=== PATIENT | female | born 1990 | race African-American/Black ===

== ENCOUNTER → 2020-03-23 | Outpatient (CLI) | payer MEDICAID, OTHER ==
[2015-06-06 11:56] VITALS: BP 107/74
[~2020-03-23] MED LIST: ALBU2.5V8 IH; MAGNESIUM OIL TOP; Oxycodone Hcl/Acetaminophen PO
--- NOTE | 2020-03-23 16:10 | RAD ---
Examination: BREAST LEFT History: Bilateral mastectomy. Bilateral reconstruction. Palpable abnormality involving the left chest wall the past one year. The patient is uncertain if there is any significant change. Comparison/Correlation: None Findings: Limited ultrasound imaging of the left chest wall was performed. Just inferior to the level of the scar at the 3:00 region 8 cm from the center of the left reconstruction, there is a 2.2 cm x 2.3 cm x 0.9 cm tall ovoid heterogeneous, intermediate echogenicity structure. Numerous punctate foci of echogenicity which may represent calcifications are seen noted throughout this structure. No definite flow within the structure. Left axillary lymph nodes are present but benign in appearance. Impression: BI-RADS Category 0-incomplete. There is a mass lesion corresponding to the palpable abnormality within the left reconstruction. While it would be unusual for this findings represent a malignancy, the possibly is not entirely excluded. Further evaluation with mammography is recommended for further characterization. Electronically signed by: Bogdan Saleh MD (03/23/2020 4:07 PM) [id number]
== END | disposition home or self-care (01) ==
LOC: US 03-19 14:06
PROVIDERS: ATTEND Internal Medicine Hematology & Oncology
DX: N63.20 Unspecified lump in the left breast, unspecified quadrant (principal); Z85.3 Personal history of malignant neoplasm of breast; Z90.13 Acquired absence of bilateral breasts and nipples
CPT/HCPCS: 76641

== ENCOUNTER → 2020-04-10 | Outpatient (CLI) | payer OTHER ==
[2015-06-06 11:56] VITALS: BP 107/74
--- NOTE | 2020-04-10 15:08 | RAD ---
EXAMINATION: US GUID NDL PLACE/ASPI/BX, DIGITAL DIAGNOSTIC LT, 04/10/2020 9:30 AM CLINICAL INDICATION: 29-year-old woman with history of right breast cancer post bilateral mastectomies, chemotherapy and radiation in 2014 presenting with new palpable mass in the left breast reconstruction. COMPARISON: Left breast ultrasound 03/23/2020 LEFT BREAST BIOPSY: The purpose of the procedure and risks and benefits were discussed with the patient. Informed consent was obtained. A timeout was performed. The mass in the left breast reconstruction at 3:00 was identified under ultrasound. The overlying skin was marked, prepped, and draped in standard sterile fashion. Skin and subcutaneous soft tissue along the biopsy tract and at the lateral and inferior aspect of the mass was anesthetized with 1 percent lidocaine. A small skin cristy was made. Using continuous ultrasound guidance, four 1.5 cm 14-gauge biopsy samples were obtained using a coaxial 14-gauge Bard biopsy device. The samples were placed in formalin and sent to the laboratory for analysis. A biopsy clip was deployed in the mass under ultrasound guidance. The introducer was removed. Pressure was held to achieve hemostasis. Skin was cleansed and covered with a sterile dressing. The patient tolerated the procedure well and was sent for mammography in stable condition. POST BIOPSY DIAGNOSTIC LEFT BREAST MAMMOGRAM: CC and MLO views of the left breast reconstruction were obtained. The patient is post mastectomy and left breast reconstruction. Images demonstrate a biopsy clip in the center of the ovoid 2 cm mass at 3:00 in the left breast reconstruction. Adjacent soft tissue thickening is likely postprocedural related to lidocaine injection. There are at least 3 additional ovoid, well-circumscribed masses in the upper outer left breast reconstruction at approximately 1:00. These measure 0.8 to 1.2 cm and are just deep to the skin. Surgical clips are seen along the chest wall from prior reconstruction. IMPRESSION: 1. Technically successful ultrasound-guided biopsy of mass at 3:00 in the left breast reconstruction. 2. Appropriate position of postbiopsy clip. 3. Of note, post clip mammogram demonstrates at least 3 additional ovoid circumscribed masses in the upper outer aspect of the left breast reconstruction. These could be further evaluated by ultrasound. This was discussed by Dr. Cabrera with Dr. Mendenhall at approximately 12:00 PM on 04/10/2020. Electronically signed by: Loida Cabrera MD (04/10/2020 3:05 PM) [id number]
--- NOTE | 2020-04-11 17:06 | PATHOLOGY ---
[facility] Accession Number: [id number] . 01 Material submitted: . breast - LEFT BREAST, AREA OF LUMP 3:00, APPROX 8CFN. Modifiers: left, 3:00 . 01 Clinical history: . Left breast mass 3:00 approximately 8cfn . 02 Diagnosis: Breast tissue, left breast mass 3:00 needle biopsies: - Benign squamous epithelial-lined cyst, with adjacent stromal sclerosis. (JPM:pricing/signage team member; 04/11/2020) MBR 04/11/2020 1435 Local . 02 Comment: Sections of the left breast mass core biopsy reveal portions of a benign cyst wall. The cyst is lined by a keratinizing stratified squamous epithelium and contains keratinaceous material. The wall of the cyst shows stromal sclerosis and focal breast tissue. There is no evidence of malignancy. (JPM:joshua; 04/11/2020) . 02 Electronically signed: . Homer Vázquez MD, Pathologist NPI- [id number] . 01 Gross description: . The specimen is received in formalin, labeled "Sublett, Daniella, left breast" and consists of 5 needle cores of yellow-pinzon tissue measuring between 0.3 cm and 1.3 cm in length and 0.2 cm each in diameter which are entirely submitted in A1-A3. The specimen was obtained at 10:50 AM on 04/10/2020 and placed in formalin at 10:55 AM. The cold ischemic time is 5 minutes and the total formalin fixation time is greater than 6 hours but less than 72 hours. (MARNIY; 04/10/2020) SYU/SYU 04/10/2020 1703 Local . 02 Pathologist provided ICD-10: N60.22, N60.02 . 02 CPT . 604733 Specimen Comment: A courtesy copy of this report has been sent to [phone], [phone] Specimen Comment: [id number], Specimen Comment: Report sent to / DR LIN Specimen Comment: A duplicate report has been generated due to demographic updates. Performed at: 01 [facility] [address], [place] [id number] MD Angelo Bundy MD Phone: [phone] Performed at: 02 [facility] [address] [place], [place] [id number] MD Homer Vázquez MD Phone: [phone]
== END ==
LOC: US 04-09 08:51
PROVIDERS: ATTEND Surgery
DX: N63.20 Unspecified lump in the left breast, unspecified quadrant (principal); N60.02 Solitary cyst of left breast; N64.89 Other specified disorders of breast
CPT/HCPCS: 19083; 77065; 88305; C1713; 19081; 76942

== ENCOUNTER 2021-05-27 10:43 | Emergency (ER) | payer OTHER ==
[~2021-05-27] VITALS: Ht 177.8 cm; Wt 77.2 kg
--- NOTE | 2021-05-27 11:11 | PHYS DOC ---
Past Medical History Past Medical History: Cancer, Other Additional Past Medical Histor: breast cancer (TATO SALINAS RISK CONSULTING TREASURY DIRECTOR) Past Surgical History: Other Additional Past Surgical Histo: double mastectomy, dilation and curretage (TATO SALINAS RISK CONSULTING TREASURY DIRECTOR) Smoking Status: Never Smoker Alcohol Use: Occasionally Drug Use: None (TATO SALINAS RISK CONSULTING TREASURY DIRECTOR) General Adult EDM: Chief Complaint: SORE THROAT HPI: HPI: Patient is a 30 year old female with a history of breast cancer and double mastectomies who presents to the ED today complaining of a sore throat, headache and bilateral ear pain, symptoms began 3 days ago. Rates the pain at 7 out of 10. Describes the pain as throbbing and worse on the left side of the head. Denies any fever. Denies any cough. States she has difficulty swallowing with hot potato voice. (TATO SALINAS RISK CONSULTING TREASURY DIRECTOR) Review of Systems: Review of Systems: Constitutional: Denies fever or chills. [] Eyes: Denies change in visual acuity. [] HENT: Reports sore throat and bilateral ear pain. Denies nasal congestion Respiratory: Denies cough or shortness of breath. [] Cardiovascular: Denies chest pain or edema. [] GI: Denies abdominal pain, nausea, vomiting, bloody stools or diarrhea. [] : Denies dysuria. [] Musculoskeletal: Denies back pain or joint pain. [] Integument: Denies rash. [] Neurologic: Denies headache, focal weakness or sensory changes. [] Psychiatric: Denies depression or anxiety. [] (TATO SALINAS RISK CONSULTING TREASURY DIRECTOR) Heart Score: C/O Chest Pain: N/A Risk Factors: Risk Factors: DM, Current or recent (<one month) smoker, HTN, HLP, family history of CAD, obesity. Risk Scores: Score 0 - 3: 2.5% MACE over next 6 weeks - Discharge Home Score 4 - 6: 20.3% MACE over next 6 weeks - Admit for Clinical Observation Score 7 - 10: 72.7% MACE over next 6 weeks - Early Invasive Strategies (TATO SALINAS RISK CONSULTING TREASURY DIRECTOR) Current Medications: Current Medications Medications (Trade) Dose Ordered Sig/Tatianna Start Time Stop Time Status Last Admin Dose Admin Acetaminophen (Tylenol) 650 mg 1X ONCE 05/27/21 11:15 05/27/21 11:16 UNV Dexamethasone Sodium Phosphate (Decadron) 10 mg 1X ONCE 05/27/21 11:15 05/27/21 11:16 UNV Lidocaine HCl (Viscous Lidocaine) 15 ml 1X ONCE 05/27/21 11:15 05/27/21 11:16 UNV Morphine Sulfate (Morphine Sulfate) 2 mg PRN Q15MIN PRN 05/27/21 11:15 05/28/21 11:14 UNV (TATO SALINAS Michael RISK CONSULTING TREASURY DIRECTOR) Allergies: Allergies: Allergies Coded Allergies Type Severity Reaction Last Updated Verified Coconut Allergy Intermediate hives 06/06/15 Yes (TATO SALINAS Michael RISK CONSULTING TREASURY DIRECTOR) Physical Exam: PE: Constitutional: Well developed, well nourished, no acute distress, non-toxic appearance. [] HENT: Normocephalic, atraumatic, bilateral external ears normal, oropharynx moist, no oral exudates, nose normal. [] Exam difficult because patient will not open her mouth wide neither does she want us to use a tongue blade. There appears to be erythema and some swelling on the right side of posterior pharynx, hard to visualize the left posterior pharynx +2 bilateral anterior cervical adenopathy worse on the left. Hot potato voice Eyes: PERRLA, EOMI, conjunctiva normal, no discharge. [] Neck: Normal range of motion, no tenderness, supple, no stridor. [] Cardiovascular:Heart rate regular rhythm, no murmur [] Lungs & Thorax: Bilateral breath sounds clear to auscultation [] Abdomen: Bowel sounds normal, soft, no tenderness, no masses, no pulsatile masses. [] Skin: Warm, dry, no erythema, no rash. [] Back: No tenderness, no CVA tenderness. [] Extremities: No tenderness, no cyanosis, no clubbing, ROM intact, no edema. [] Neurologic: Alert and oriented X 3, normal motor function, normal sensory fu nction, no focal deficits noted. [] Psychologic: Affect normal, judgement normal, mood normal. [] (TATO SALINAS Michael RISK CONSULTING TREASURY DIRECTOR) Current Patient Data: Vital Signs: Vital Signs Date Time Temp Pulse Resp B/P (MAP) Pulse Ox O2 Delivery O2 Flow Rate FiO2 05/27/21 11:01 99.4 91 18 140/92 (108) 98 Room Air 99.4 (MUTUNGA,TATO M RISK CONSULTING TREASURY DIRECTOR) EKG: EKG: [] (TATO SALINAS RISK CONSULTING TREASURY DIRECTOR) Radiology/Procedures: Radiology/Procedures: []PROCEDURE: CT SOFT TISSUE NECK W/CONTRAST CT neck with contrast dated 05/27/2021. No comparison available Clinical data indication: Sore throat. Evaluate for abscess. TECHNIQUE: Contiguous axial imaging the neck performed following the intravenous and demonstration of 70 cc Omnipaque 300. One or more of the following individualized dose reduction techniques were utilized for this examination: 1. Automated exposure control 2. Adjustment of the mA and/or kV according to patient size 3. Use of iterative reconstruction technique FINDINGS: There is marked thickening of the peritonsillar soft tissues, left greater than right. The oropharyngeal airway is displaced to the right of midline and there is a vague low-density collection in the left peritonsillar region that measures 2.1 x 1.4 x 2.1 cm best seen on coronal image 27. No soft tissue gas. The airway is mildly narrowed. Epiglottis and aryepiglottic folds are within normal limits in thickness. There is some soft tissue thickening in the vallecula. There are enlarged lymph nodes throughout the bilateral cervical chain, left greater than right. Level 2 lymph node on the left measures up to 2 cm long axis. There is also an enlarged left submandibular lymph node that measures up to 1.6 cm long axis. Submandibular glands and parotid glands are symmetric. Thyroid gland unremarkable. The neck vasculature appears grossly patent. Paranasal sinuses and mastoid air cells are grossly clear. Imaged portions the brain parenchyma unremarkable. No additional soft tissue abnormality. Limited images of the lung apices are clear. Bone windows show no acute findings. IMPRESSION: 1. Peritonsillar soft tissue thickening consistent with history of acute pharyngitis. There is a somewhat vague low-density collection in the left tonsillar pillar that measures up to 2.1 cm in size, suspicious for abscess. 2. Inflamed soft tissues result in mild narrowing and displacement of the oropharynx toward the right. 3. Bilateral cervical chain lymphadenopathy, left greater than right, likely reactive. Electronically signed by: Dick Sosa MD (05/27/2021 1:09 PM) [id number] DICTATED and SIGNED BY: DICK SOSA MD DATE: 05/27/21 [id number] (TATO SALINAS RISK CONSULTING TREASURY DIRECTOR) Course & Med Decision Making: Course & Med Decision Making Pertinent Labs and Imaging studies reviewed. (See chart for details) This is a 30-year-old female patient presented to the ED today with sore throat, headache and bilateral ear pain, symptoms began 3 days ago. Exam difficult. CBC with a WBC of 13.4, CMP with no acute findings. Vitals on arrival to the ED temperature 99.4, heart rate 91, respiration 18, blood pressure 140/92, O2 sats 98% on room air CT of the abdomen and pelvic was noted for possible peritonsillar abscess, acute pharyngitis, inflammation and narrowing of the oropharynx with displacement oropharynx towards the right, bilateral cervical adenopathy. Spoke to [facility], accepting physician Dr. Ridley Patient given Rocephin, Decadron and IV fluids. EMS transported patient (TATO SALINAS RISK CONSULTING TREASURY DIRECTOR) Course & Med Decision Making I oversaw on the above date of service of this patient. This patient was evaluated, examined, treated, and dispositioned from the emergency department by the mid-level practitioner. I personally saw the patient and repeated certain aspects of history and physical exam. I reviewed note and agree to findings, plan of care, and disposition as stated. Critical Care Time This patient required critical care. Due to the fact that the patient required a significant amount of one on one physician - patient contact time, ordering and review of studies, arranging urgent treatment with development of a management plan, evaluation of patients response to treatment with frequent reassessments, and discussions with other providers this patient required 35 minutes of critical care time. Critical care time was indicated due to the inherent instability and/or potential for instability in this patient. The critical care time that is allocated to this patient is above and beyond any time spent on any other billable procedures performed on this patient. Electronically signed, Pito Fernandez DO (PITO FERNANDEZ DO) Derek Disclaimer: Derek Disclaimer: This electronic medical record was generated, in whole or in part, using a voice recognition dictation system. (TATO SALINAS RISK CONSULTING TREASURY DIRECTOR) Departure Departure Impression: Primary Impression: Peritonsillar abscess Additional Impressions: Leukocytosis Qualified Codes: D72.829 - Elevated white blood cell count, unspecified Acute pharyngitis Qualified Codes: J02.9 - Acute pharyngitis, unspecified Disposition: 02 SHORT TERM HOSPITAL ([facility]) Admitting Physician: ADALI sanchez) (PITO FERNANDEZ DO) Condition: STABLE Referrals: NO PCP (PCP) TATO SALINAS APRN May 27, 2021 11:11 PITO FERNANDEZ DO May 27, 2021 15:47
[2021-05-27] MEDS ORDERED: LIDOCAINE 2% VISCOUS 15 ML SOLUTION. SWSW ONE (11:30)
[2021-05-27] MEDS ORDERED: ACETAMINOPHEN 650 MG/20.3 ML SOLUTION. PO ONE (11:30)
[2021-05-27] MEDS ORDERED: DEXAMETHASONE SOD PHOS 20 MG/5 ML VIAL. IV ONE (11:30)
[2021-05-27] MEDS: MORPHINE SULFATE 2 MG/ML INJ. IV/SQ PRN ×2 (12:03→14:41)
[2021-05-27 12:11] LABS: BASO # 0.1 x10^3/uL (0.0-0.2); BASO % 1 % (0-3); EOS # 0.1 x10^3/uL (0.0-0.7); EOS % 1 % (0-3); HEMATOCRIT 39.2 % (36.0-47.0); LYMPH # 2.8 x10^3/uL (1.0-4.8); LYMPH % 21 % (24-48); MEAN CORPUSCULAR HEMOGLOBIN 30 pg (25-35); MEAN CORPUSCULAR HGB CONC 33 g/dL (31-37); MEAN CORPUSCULAR VOLUME 89 fL (79-100); MONO # 1.6 x10^3/uL (0.0-1.1); MONO % 12 % (0-9); NEUT # 8.8 x10^3/uL (1.8-7.7); NEUT % 66 % (31-73); PLATELET COUNT 271 x10^3/uL (140-400); RED BLOOD COUNT 4.39 x10^6/uL (3.50-5.40); RED CELL DISTRIBUTION WIDTH 14.5 % (11.5-14.5); WHITE BLOOD COUNT 13.4 x10^3/uL (4.0-11.0)
[2021-05-27] MEDS ORDERED: CONTRAST GIVEN. MC PRN (12:15)
[2021-05-27 12:22] LABS: CALCIUM 9.8 mg/dL (8.5-10.1); CREATININE 0.9 mg/dL (0.6-1.0); GFR 88.4; POTASSIUM 3.7 mmol/L (3.5-5.1)
[2021-05-27 12:27] LABS: ALBUMIN 4.2 g/dL (3.4-5.0); ALBUMIN/GLOBULIN RATIO 0.9 (1.0-1.7); TOTAL BILIRUBIN 0.8 mg/dL (0.2-1.0); TOTAL PROTEIN 8.9 g/dL (6.4-8.2)
[2021-05-27] MEDS ORDERED: IOHEXOL 300 MG/ML 100ML VIAL. IV ONE (12:30)
--- NOTE | 2021-05-27 13:12 | RAD ---
CT neck with contrast dated 05/27/2021. No comparison available Clinical data indication: Sore throat. Evaluate for abscess. TECHNIQUE: Contiguous axial imaging the neck performed following the intravenous and demonstration of 70 cc Omni paque 300. One or more of the following individualized dose reduction techniques were utilized for this examinat ion: 1. Automated exposure control 2. Adjustment of the mA and/or kV according to patient size 3. Use of iterative reconstruction technique FINDINGS: There is marked thickening of the peritonsillar soft tissues, left greater than right. The oropharyng eal airway is displaced to the right of midline and there is a vague low-density collection in the le ft peritonsillar region that measures 2.1 x 1.4 x 2.1 cm best seen on coronal image 27. No soft tissu e gas. The airway is mildly narrowed. Epiglottis and aryepiglottic folds are within normal limits in thickness. There is some soft tissue thickening in the vallecula. There are enlarged lymph nodes throughout the bilateral cervical chain, left greater than right. Leve l 2 lymph node on the left measures up to 2 cm long axis. There is also an enlarged left submandibula r lymph node that measures up to 1.6 cm long axis. Submandibular glands and parotid glands are symmet татьяна. Thyroid gland unremarkable. The neck vasculature appears grossly patent. Paranasal sinuses and mastoid air cells are grossly clear. Imaged portions the brain parenchyma unrem arkable. No additional soft tissue abnormality. Limited images of the lung apices are clear. Bone windows show no acute findings. IMPRESSION: 1. Peritonsillar soft tissue thickening consistent with history of acute pharyngitis. There is a some what vague low-density collection in the left tonsillar pillar that measures up to 2.1 cm in size, sesay spicious for abscess. 2. Inflamed soft tissues result in mild narrowing and displacement of the oropharynx toward the right . 3. Bilateral cervical chain lymphadenopathy, left greater than right, likely reactive. Electronically signed by: Dick Sosa MD (05/27/2021 1:09 PM) [id number]
[2021-05-27 14:00] VITALS: BP 122/77
[2021-05-27] MEDS ORDERED: cefTRIAXone IV Push 1 GM VIAL. IVP ONE (14:30)
== END 2021-05-27 15:15 | disposition short-term general hospital (02) ==
LOC: ER 10:43
DX: J36 Peritonsillar abscess (principal); D72.829 Elevated white blood cell count, unspecified; Z91.018 Allergy to other foods
CPT/HCPCS: 36415; 70491; 80053; 85025; 87040; 96374; 96375; 96376; 99291; J0696; J1100; J2270; Q9967

== ENCOUNTER 2021-10-14 12:38 | Emergency (ER) | payer SELFPAY ==
[~2021-10-14] VITALS: Ht 180.3 cm; Wt 79.5 kg
--- NOTE | 2021-10-14 13:05 | PHYS DOC ---
Past Medical History Past Medical History: Cancer, Other Additional Past Medical Histor: breast cancer Past Surgical History: Other Additional Past Surgical Histo: double mastectomy, dilation and curretage Smoking Status: Never Smoker Alcohol Use: Occasionally Drug Use: None General Adult EDM: Chief Complaint: ANKLE PROBLEM HPI: HPI: Patient is a 31 year old female patient presenting to the ED today complaining of 8 out of 10 sharp intermittent right medial ankle pain, symptoms began this morning, patient states she was pushing something heavy and twisted the right ankle. Patient states the pain is worse on the elevation and better on dangling the foot. Review of Systems: Review of Systems: Constitutional: Denies fever or chills. [] Musculoskeletal: Reports right ankle pain. Denies back pain Integument: Denies rash. [] Neurologic: Denies headache, focal weakness or sensory changes. [] Psychiatric: Denies depression or anxiety. [] Heart Score: C/O Chest Pain: N/A Risk Factors: Risk Factors: DM, Current or recent (<one month) smoker, HTN, HLP, family history of CAD, obesity. Risk Scores: Score 0 - 3: 2.5% MACE over next 6 weeks - Discharge Home Score 4 - 6: 20.3% MACE over next 6 weeks - Admit for Clinical Observation Score 7 - 10: 72.7% MACE over next 6 weeks - Early Invasive Strategies Allergies: Allergies: Allergies Coded Allergies Type Severity Reaction Last Updated Verified Coconut Allergy Intermediate hives 06/06/15 Yes Physical Exam: PE: Constitutional: Well developed, well nourished, no acute distress, non-toxic appearance. [] Skin: Warm, dry, no erythema, no rash. [] Back: No tenderness, no CVA tenderness. [] Extremities: Right ankle with no obvious deformity, no bruising, no ecchymosis, tenderness on palpation of the right medial ankle. Full range of motion to the right ankle and foot. +2 right pedal pulse. Cap refill less than 2 seconds to right toes. No tenderness on the navicular bone or the base of the fifth metatarsal of the right foot. Neurologic: Alert and oriented X 3, normal motor function, normal sensory function, no focal deficits noted. [] Psychologic: Affect normal, judgement normal, mood normal. [] EKG: EKG: [] Radiology/Procedures: Radiology/Procedures: []PROCEDURE: ANKLE RIGHT 3V Study: XR EXAM OF ANKLE_RIGHT 3VIEWS Indication: Pain. Comparison: None. Findings: The malleoli are intact. Symmetric ankle mortise. Unremarkable talar dome. Trace chronic spurring at the dorsum of the navicular adjacent to the talonavicular joint. No acute fracture seen throughout the partially assessed foot. Impression: No acute fracture or malalignment at the ankle. Electronically signed by: NUBIA LEDESMA MD (10/14/2021 1:14 PM) [id number] DICTATED and SIGNED BY: NUBIA LEDESMA MD DATE: 10/14/21 [id number] 0 Course & Med Decision Making: Course & Med Decision Making Pertinent Labs and Imaging studies reviewed. (See chart for details) This is a 31-year-old female patient presented to the ED today with right ankle pain that began today while pushing something heavy. Right ankle x-rays interpreted by radiologist are negative for any acute findings. Aircast applied to the right ankle by the infectious disease technician, neurovascular exam done by the RN is normal. Ice elevation encouraged. OTC pain relievers. Follow-up with Ortho in 1 week if pain persist Dragon Disclaimer: Dragon Disclaimer: This electronic medical record was generated, in whole or in part, using a voice recognition dictation system. Departure Departure Impression: Primary Impression: Right ankle sprain Qualified Codes: S93.401A - Sprain of unspecified ligament of right ankle, initial encounter Disposition: HOME / SELF CARE / HOMELESS Condition: STABLE Referrals: NO PCP (PCP) LUIS ANTONIO LARA DO follow up in 1 week if pain persist Patient Instructions: Ankle Sprain, [id number] Additional Instructions: You were seen for right ankle pain, your right ankle x-rays are negative for any acute findings. Please wear the Aircast provided as tolerated and needed. Try to ice and elevate the extremity. You can take [id number] pain relievers as needed for pain. Follow-up with the provided orthopedic doctor in 1 week if pain persist TATO SALINAS APRN Oct 14, 2021 13:05
--- NOTE | 2021-10-14 13:17 | RAD ---
Study: XR EXAM OF ANKLE_RIGHT 3VIEWS Indication: Pain. Comparison: None. Findings: The malleoli are intact. Symmetric ankle mortise. Unremarkable talar dome. Trace chronic spurring at the dorsum of the navicular adjacent to the talonavicular joint. No acute fracture seen throughout th e partially assessed foot. Impression: No acute fracture or malalignment at the ankle. Electronically signed by: NUBIA LEDESMA MD (10/14/2021 1:14 PM) [id number]
[2021-10-14 14:15] VITALS: BP 102/61
== END 2021-10-14 14:21 | disposition home or self-care (01) ==
LOC: ER 12:38
DX: S93.401A Sprain of unspecified ligament of right ankle, initial encounter (principal); Z91.018 Allergy to other foods; X50.9XXA Other and unspecified overexertion or strenuous movements or postures, initial encounter; Y93.89 Activity, other specified; Y92.89 Other specified places as the place of occurrence of the external cause; Y99.8 Other external cause status
CPT/HCPCS: 29515; 73610; 99283